=== PATIENT | male | born 1995 | race American Indian/Alaskan Native ===

== ENCOUNTER 2017-02-16 20:11 | Emergency (ER) | payer OTHER ==
[2017-02-16 20:31] VITALS: BMI 21.7
[2017-02-16 20:32] VITALS: TEMP 98.3
[2017-02-16 20:34] VITALS: RESP 18
[2017-02-16] MEDS ORDERED: Lidocaine 1% Inj (20ml) ONE (20:58)
--- NOTE | 2017-02-16 21:24 | ED PDOC ---
Arrival/HPI - General Chief Complaint: Trauma Time Seen by Provider: 02/16/17 20:25 Historian: Patient - History of Present Illness Narrative History of Present Illness (Text): 02/16/17 21:21 A 21 year old male whose past medical history includes asthma, presents to the emergency department after getting a laceration lateral to the left lateral canthus of the left eye. The patient states that he was playing basketball and was elbowed in the eye. He does not have any visual changes. The patient's last tetanus is unknown. The patient denies any loss of consciousness, has no focal weakness with no nv. Time/Duration: Prior to Arrival Symptom Onset: Sudden Symptom Course: Unchanged Activities at Onset: Rest, Light Context: Home Past Medical History - Provider Review Nursing Documentation Reviewed: Yes - Cardiac Hx Cardiac Disorders: No - Pulmonary Hx Asthma: Yes - Neurological Hx Neurological Disorder: No - HEENT Hx HEENT Disorder: No - Renal Hx Renal Disorder: No - Endocrine/Metabolic Hx Endocrine Disorders: No - Hematological/Oncological Hx Blood Disorders: No - Integumentary Hx Dermatological Disorder: No - Musculoskeletal/Rheumatological Hx Musculoskeletal Disorders: No - Gastrointestinal Hx Gastrointestinal Disorders: No - Genitourinary/Gynecological Hx Genitourinary Disorders: No - Psychiatric Hx Psychophysiologic Disorder: No Hx Substance Use: Yes (marijuana) - Anesthesia Hx Anesthesia: Yes Family/Social History - Physician Review Nursing Documentation Reviewed: Yes Family/Social History: No Known Family HX Smoking Status: Current Some Days Smoker Hx Alcohol Use: No Hx Substance Use: Yes (marijuana) Allergies/Home Meds Allergies/Adverse Reactions: Allergies No Known Allergies Allergy (Verified 02/16/17 20:31) Home Medications: Home Meds Medication Instructions Recorded Confirmed No Known Home Med 02/16/17 02/16/17 Review of Systems - Physician Review All systems were reviewed & negative as marked: Yes - Review of Systems Constitutional: absent: Fevers, Night Sweats Eyes: Other ( Laceration lateral to the left lateral canthus). absent: Vision Changes, Photophobia ENT: absent: Sore Throat, Epistaxis Gastrointestinal: absent: Nausea, Vomiting Genitourinary Male: absent: Urinary Output Changes Musculoskeletal: absent: Back Pain, Neck Pain Skin: Laceration ( Laceration lateral to the left lateral canaliculi.) Neurological: absent: Headache, Dizziness Physical Exam Vital Signs Reviewed: Yes Vital Signs Temp Pulse Resp BP Pulse Ox 02/16/17 20:31 98.3 F 74 18 134/73 100 Temperature: Afebrile Blood Pressure: Normal Pulse: Regular Respiratory Rate: Normal Appearance: Positive for: Well-Appearing, Non-Toxic, Comfortable Pain Distress: None Mental Status: Positive for: Alert and Oriented X 3 - Systems Exam Head: Present: Normocephalic, Tenderness (ttp in the supra-orbital and infra- orbital area with ecchymosis.), Laceration ( Superficial, V-Shaped irregular laceration lateral to the left lateral canthus not involving the inner or edge of the eyelid. A second laceration is present that is linear and irregular as well along the left lateral maxilla.) Pupils: Present: PERRL Extroacular Muscles: Present: EOMI Conjunctiva: Present: Normal Mouth: Present: Moist Mucous Membranes Pharnyx: Present: Normal. No: ERYTHEMA, EXUDATE, TONSILS ENLARGED Nose (External): Present: Atraumatic Nose (Internal): Present: Normal Inspection, No Active Bleeding, Moist. No: Rhinorrhea, Purulent Mucous, Septal Hematoma, Epistaxis Neck: Present: Normal Range of Motion. No: MIDLINE TENDERNESS Back: Present: Normal Inspection Upper Extremity: Present: Normal Inspection. No: Cyanosis, Edema Lower Extremity: Present: Normal Inspection. No: Edema Neurological: Present: GCS=15, CN II-XII Intact, Speech Normal, Motor Func Grossly Intact, Gait Normal Skin: Present: Warm, Dry, Normal Color. No: Rashes Psychiatric: Present: Alert, Oriented x 3, Normal Insight, Normal Concentration Medical Decision Making ED Course and Treatment: 02/16/17 21:28 Impression: A 21 year old male presents to the emergency department with a laceration lateral to the left lateral canaliculi after being elbowed while playing basketball. Plan: -- Suture -- Tdap -- CT orbit -- Reassess and disposition Progress Notes: 02/16/17 22:49 Laceration Wound Repair: 1st Laceration: longitudinal 2 cm laceration along upper lateral left maxilla. Wound irrigated with sterile saline. closed with dermabond adhesive. Steri- strips were used additionally for approximation. 2nd Laceration: irregularly shaped v-shaped laceration around the outer eyelid of the lateral canthus of the left eye. No inner eyelid or corner of edge of eyelid our actual canthus involvement. The wound was locally anesthetized with lidocaine 1% using a 27G needle. Irrigated with sterile saline. 7 non- absorbable interrupted prolene sutures were placed for closure; 2 of the sutures were 5-0 and the other 5 were 6-0. Complexity: significantly irregular ; moderate in complexity. Patient tolerated procedure well. CT Orbits Without Intravenous Contrast FINDINGS: Orbits: Unremarkable as visualized. Sinuses: Scattered minimal mucosal thickening of ethmoid sinuses. No air-fluid levels. Bones/joints: No acute fracture. Soft tissues: LEFT periorbital soft tissue swelling/air. IMPRESSION: 1. No fracture. 2. Incidental/non-acute findings are described above. Dictated and Authenticated by: Sly Lundberg MD 02/16/2017 10:57 PM Eastern Time ([place] & [place]) 02/16/17 23:[address], sutured, tetanus updated - ok for d/c. - RAD Interpretation Radiology Orders: 02/16/17 22:09 ORBITS/ FACIALS W/O CONTRAST [CT] Stat - Medication Orders Current Medication Orders: Discontinued Medications Tetanus/Reduced Diphtheria/Acell Pertussis (Boostrix Vaccine Inj) 0.5 ml IM .ONCE ONE Stop: 02/16/17 22:09 - Scribe Statement The provider has reviewed the documentation as recorded by the Scribe Kaia Kitchen Provider Scribe Attestation: All medical record entries made by the Scribe were at my direction and personally dictated by me. I have reviewed the chart and agree that the record accurately reflects my personal performance of the history, physical exam, medical decision making, and the department course for this patient. I have also personally directed, reviewed, and agree with the discharge instructions and disposition. Disposition/Present on Arrival - Present on Arrival Any Indicators Present on Arrival: No History of DVT/PE: No History of Uncontrolled Diabetes: No Urinary Catheter: No History of Decub. Ulcer: No History Surgical Site Infection Following: None - Disposition Have Diagnosis and Disposition been Completed?: Yes Diagnosis: Laceration of multiple sites of face Disposition: HOME/ ROUTINE Disposition Time: 23:00 Patient Plan: Discharge Patient Problems: Current Active Problems Problem Status Onset Laceration of multiple sites of face Acute Condition: GOOD Discharge Instructions (ExitCare): Care For Your Stitches (ED), Laceration (ED) , Skin Adhesive Care (ED) Additional Instructions: Do not get the laceration covered by the adhesive wet. Sutures are to be removed in 8-9 days. Keep wound area clean and apply bacitracin daily. Avoid any rigorous activity in the meantime. Follow up with your primary care doctor or the emergency department for suture removal. Return to the emergency department if any new concerning symptoms. Referrals: Vince Hough MD [Primary Care Provider] - Follow up with primary Forms: [employer] (Micronesian)
[2017-02-16] MEDS ORDERED: TDAP Vaccine 0.5 mL Syr IM ONE (22:08)
--- NOTE | 2017-02-16 22:58 | CT ---
EXAM: CT Orbits Without Intravenous Contrast CLINICAL HISTORY: 21 years old, male; Injury or trauma; Fall; Initial encounter; Blunt trauma (contusions or hematomas); Orbit/periorbital; Left; Additional info: L orbital injury - R/O FX TECHNIQUE: Axial computed tomography images of the orbits without intravenous contrast. All CT scans at this facility use one or more dose reduction techniques, viz.: automated exposure control; ma/kV adjustment per patient size (including targeted exams where dose is matched to indication; i.e. head); or iterative reconstruction technique. Coronal and sagittal reformatted images were created and reviewed. COMPARISON: No relevant prior studies available. FINDINGS: Orbits: Unremarkable as visualized. Sinuses: Scattered minimal mucosal thickening of ethmoid sinuses. No air-fluid levels. Bones/joints: No acute fracture. Soft tissues: LEFT periorbital soft tissue swelling/air. IMPRESSION: 1. No fracture. 2. Incidental/non-acute findings are described above.
[2017-02-16 23:12] VITALS: BP 128/70; PULSE 72; O2SAT 99
== END 2017-02-16 23:11 | disposition home or self-care (01) ==
LOC: ED 20:11
DX: S01.112A Laceration without foreign body of left eyelid and periocular area, initial encounter (principal); S01.81XA Laceration without foreign body of other part of head, initial encounter; W51.XXXA Accidental striking against or bumped into by another person, initial encounter; Y93.67 Activity, basketball